=== PATIENT | female | born 1970 | race Caucasian/White ===

== ENCOUNTER 2022-03-11 18:57 | Emergency (ER) | payer OTHER ==
[~2022-03-11] VITALS: Ht 165.1 cm; Wt 136.1 kg
[2022-03-11 19:08] VITALS: BP 179/82
--- NOTE | 2022-03-11 19:12 | NUR ---
PT C/O SUBSTERNAL CP SINCE THIS AM. ALSO C/O WOUND TO ABDOMEN X1 WEEK.
[2022-03-11] MEDS ORDERED: LORazepam 2 MG/ML VIAL IVP ONE (20:10)
--- NOTE | 2022-03-11 20:19 | NUR ---
PT AMBULATED TO THE BATHROOM WITH A STEADY GAIT.
[2022-03-11 20:46] LABS: BASOPHILS % (AUTO) 0.5 % (0.0-2.0); EOSINOPHILS # (AUTO) 0.2 K/uL (0-0.4); EOSINOPHILS % (AUTO) 2.2 % (0.0-4.0); HEMATOCRIT 38.7 % (36-48); HEMOGLOBIN 12.8 g/dL (12.0-16.0); LYMPHOCYTES # (AUTO) 1.8 K/uL (2.5-16.5); LYMPHOCYTES % (AUTO) 20.6 % (20.5-51.1); MEAN CORPUSCULAR HEMOGLOBIN 29 pg (27-31); MEAN CORPUSCULAR HGB CONC 33 g/dL (33-37); MEAN CORPUSCULAR VOLUME 87.8 fL (80-94); MONOCYTES # (AUTO) 0.9 K/uL (0.8-1.0); MONOCYTES % (AUTO) 10.4 % (1.7-9.3); NEUTROPHILS # (AUTO) 5.7 K/uL (1.8-7.7); NEUTROPHILS % (AUTO) 66.3 % (42.2-75.2); PLATELET COUNT (AUTO) 298 K/uL (140-450); RED BLOOD CELL COUNT(AUTO) 4.41 MIL/uL (4.20-5.40); RED CELL DISTRIBUTION WIDTH 13.9 % (11.6-13.7); WHITE BLOOD COUNT (AUTO) 8.6 K/uL (4.8-10.8)
[2022-03-11 21:07] LABS: ALBUMIN 3.2 g/dL (3.4-5.0); ANION GAP 13.8 (8-16); CARBON DIOXIDE 26.3 mmol/L (21-32); CREATININE 0.9 mg/dL (0.6-1.3); POTASSIUM 3.1 mmol/L (3.5-5.1); TOTAL BILIRUBIN 0.3 mg/dL (0.0-1.0)
[2022-03-11] MEDS ORDERED: FUROSEMIDE 100 MG/10 ML VIAL IVP ONE (21:50)
[2022-03-11] MEDS ORDERED: POTASSIUM CHLORIDE 10 MEQ TABER PO ONE (21:50)
[2022-03-11] MEDS ORDERED: NAPR-1704 PO (23:32)
[2022-03-11] MEDS ORDERED: ATI.5 PO (23:37)
--- NOTE | 2022-03-12 00:05 | NUR ---
IV removed, catheter intact and site benign. Applied folded 4x4 gauze and tape to stop bleeding.
[2022-03-12 00:07] VITALS: BP 149/92
--- NOTE | 2022-03-12 00:07 | NUR ---
Patient discharged with V/S WNL. Written and verbal after care instructions given and explained about nonspecific chest pain and stress. Patient alert, oriented and verbalized understanding of instructions. Ambulatory with steady gait. All questions addressed prior to discharge. ID band removed. Patient advised to follow up with PMD. Rx of Ativan and Naproxen given. Patient educated on indication of medication including possible reaction and side effects. Opportunity to ask questions provided and answered.
== END 2022-03-12 00:07 | disposition home or self-care (01) ==
LOC: MED 18:57
DX: I50.9 Heart failure, unspecified (principal); F43.20 Adjustment disorder, unspecified; E78.5 Hyperlipidemia, unspecified; E11.9 Type 2 diabetes mellitus without complications; Z79.4 Long term (current) use of insulin; Z79.899 Other long term (current) drug therapy
CPT/HCPCS: 36415; 71045; 80053; 83880; 84484; 85025; 96374; 96375; 99284; J1940; J2060